=== PATIENT | female | born 1950 | race Caucasian/White ===

== ENCOUNTER → 2016-07-29 | Outpatient (CLI) | payer OTHER ==
[~2016-07-29] MED LIST: LISI-729 PO; PRLSR20 PO
--- NOTE | 2016-07-29 15:37 | MOTOR CONDUCTION ---
ELECTROENCEPHALOGRAM FOR: Magdalena Charles. CLINICAL DIAGNOSIS: Memory loss. ELECTROENCEPHALOGRAM DIAGNOSIS: Essentially normal during wakefulness. DESCRIPTION OF TRACING: This EEG was done in the laboratory is of good technical quality. Photic stimulation was performed. Hyperventilation was not. Drowsiness and light sleep were not recorded. During wakefulness, there is evidence for normal appearing background rhythm in the alpha range of up to 10-11 Hz of maximum frequency and 30 microvolts of maximum amplitude. This is maximum posterior head regions and bilaterally symmetrical. Polymorphic mid frequency theta activity seen over all head regions without clear focal or regional predominance. Anterior head region maximum bilaterally symmetrical low voltage fast activity in the beta range is present. Photic stimulation provokes modest driving response without a photomyogenic or photoparoxysmal component. At no time during the waking tracing is there evidence for potentially epileptogenic activity in the form of polyspike or spike wave bursts, focal sharp waves or focal spikes. INTERPRETATION: This electroencephalogram is essentially normal during wakefulness without evidence for focal or generalized encephalopathy and without evidence for an epileptogenic activity.
== END | disposition home or self-care (01) ==
LOC: C.NEUR 14:00
PROVIDERS: ATTEND Nurse Practitioner Adult Health
DX: R41.3 Other amnesia (principal); R40.4 Transient alteration of awareness; Z87.820 Personal history of traumatic brain injury